=== PATIENT | male | born 1955 | race Caucasian/White ===

== ENCOUNTER 2023-07-12 05:33 | Inpatient (IN) ==
--- NOTE | 2023-07-03 11:16 | PAT Medication Instructions ---
Medication Instructions Date of Service July 03, 2023 Home Medications acetaminophen 325 mg capsule 325 mg PO QID PRN bisacodyl 10 mg rectal suppository 10 mg NM DAILY PRN folic acid 1 mg tablet 1 mg PO DAILY hydrocortisone 1 % topical cream 1 applic topical UD PRN magnesium hydroxide 400 mg/5 mL oral suspension (Milk of Magnesia) 15 ml PO DAILY PRN multivitamin-iron 9 mg-folic acid 400 mcg-calcium and minerals tablet (Thera M Plus (ferrous fumarate)) 1 tab PO DAILY omeprazole 40 mg capsule,delayed release 40 mg PO DAILY phenytoin 100 mg/4 mL oral suspension 150 mg PO BID thiamine HCl (vitamin B1) 100 mg tablet 200 mg PO DAILY Continue as directed omeprazole 40 mg capsule,delayed release 40 mg PO DAILY STOP taking 24 hours before surgery hydrocortisone 1 % topical cream 1 applic topical UD PRN DO NOT take the morning of surgery bisacodyl 10 mg rectal suppository 10 mg NM DAILY PRN folic acid 1 mg tablet 1 mg PO DAILY magnesium hydroxide 400 mg/5 mL oral suspension (Milk of Magnesia) 15 ml PO DAILY PRN multivitamin-iron 9 mg-folic acid 400 mcg-calcium and minerals tablet (Thera M Plus (ferrous fumarate)) 1 tab PO DAILY thiamine HCl (vitamin B1) 100 mg tablet 200 mg PO DAILY Take morning of surgery With a small sip of water, OTHERWISE NOTHING TO EAT OR DRINK AFTER MIDNIGHT: acetaminophen 325 mg capsule 325 mg PO QID PRN(if needed) phenytoin 100 mg/4 mL oral suspension 150 mg PO BID Take evening before surgery acetaminophen 325 mg capsule 325 mg PO QID PRN(if needed) phenytoin 100 mg/4 mL oral suspension 150 mg PO BID Other Notes If you have any questions please call us at [phone] or [phone] or [phone] or [phone]
--- NOTE | 2023-07-06 12:03 | Anesthesiology Consultation ---
Date of Service July 06, 2023 Assessment & Plan (1) Encounter for pre-operative examination: - Case discussed with Dr. Sanon including previously unconfirmed EKG (now confirmed as NSR) and he advised that patient will be acceptable to proceed with surgery as planned. - [facility] resident, 07/06/23 COVID test negative. Information above was reviewed with nurse Ofe at patient's long-term care facility over the phone. Chart Review Chart Review: Acceptable Risk for Surgery and Patient seen in Pre Admission Testing Teaching & Discussion Pre-Anesthesia Teaching/Discussion Notes: Instructed NPO after midnight before surgery, except medications with 15 cc of water. Medication instructions provided according to the PAT guidelines. History Surgery Operation Date: 07/12/23 08:00 Proposed Procedures p Percutaneous Endovascular Repair of Abdominal Aortic Aneurysm - Silverio Vargas MD Height/Weight Height: 5 ft 3 in Weight: 58 kg Allergies Allergy/AdvReac Type Severity Reaction Status Date / Time Iodinated Contrast Media Allergy Unknown Verified 06/29/23 15:21 Additional Notes: Ht and wt reported by nurse Ginna at [facility]. Nurse called 07/07/23 with updated weight. Medications Home Medications Medication Instructions Recorded Confirmed Last Taken acetaminophen 325 mg capsule 325 mg PO QID PRN fever/pain 06/29/23 06/29/23 Unknown bisacodyl 10 mg rectal suppository 10 mg SC DAILY PRN for 06/29/23 06/29/23 Unknown constipation, if no results from [facility] folic acid 1 mg tablet 1 mg PO DAILY 06/29/23 06/29/23 Unknown hydrocortisone 1 % topical cream 1 applic topical UD PRN Rash 06/29/23 06/29/23 Unknown magnesium hydroxide 400 mg/5 mL 15 ml PO DAILY PRN constipation, 06/29/23 06/29/23 Unknown oral suspension (Milk of Magnesia) no BM for 3 days multivitamin-iron 9 mg-folic acid 1 tab PO DAILY 06/29/23 06/29/23 Unknown 400 mcg-calcium and minerals tablet (Thera M Plus (ferrous fumarate)) omeprazole 40 mg capsule,delayed 40 mg PO DAILY 06/29/23 06/29/23 Unknown release phenytoin 100 mg/4 mL oral 150 mg PO BID 06/29/23 06/29/23 Unknown suspension thiamine HCl (vitamin B1) 100 mg 200 mg PO DAILY 06/29/23 06/29/23 Unknown tablet Past Medical History Medical History (Updated 07/06/23 @ 13:27 by Fiorella Eduardo PA-C) AAA (abdominal aortic aneurysm) without rupture Abd/Pelvis CT 04/11/23: Atherosclerosis with fusiform aneurysmal dilation of the infrarenal abdominal aorta measuring up to 6.6 cm Anemia Anorexia Cachexia Constipation Difficulty in walking, not elsewhere classified Dysphagia, oral phase per shelter report: mechanical soft texture, regular-thin consistency, low potassium foods; pt denies choking when eating or drinking Fracture of unspecified part of neck of left femur, subsequent 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, accompanying caregiver states that was an incidental finding GERD without esophagitis controlled, stable per pt Injury of left index finger trauma in childhood from sled riding accident Nontraumatic subdural hemorrhage, 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 Exercise / Class Metabolic Activity IV < 2 Limit ADL/Bedbound Past Surgical History Surgical History History of esophagogastroduodenoscopy (EGD) per record Hx of colonoscopy per record Surgical history unknown Past Anesthesia History No Hx of Anesthesia Complications and No Family Hx of Anesthesia Complications History of PONV No Hx of PONV and No Hx of Motion Sickness Social History Smoking Status: Never smoker Do You Dip or Chew Tobacco: No Hx Alcohol Use: No Hx Substance Use: No Review of Systems Patient denies chest pain, shortness of breath, dyspnea on exertion, snoring, witnessed apneas, fever, chills, cough, wheezing, or palpitations. Physical Exam Vital Signs Vitals BP 127.84 P 85 TEMP 98.2 SP02 95% on RA RESP 17 Physical Patient resting comfortably in chair in no acute distress, alert and oriented, responding appropriately throughout visit Full cervical extension range of motion without pain TMD 3.5 finger breadths Mallampati Score 2 Dentition: intact, denies chipped or loose teeth, caps/crowns, implants or bridges Lungs: normal respiratory effort. Good air movement, clear throughout to auscultation, no adventitious breath sounds Cardiac: regular rate and rhythm, no murmurs noted Carotid arteries: negative bruit bilat Lab Results Anesthesia Preop Results Results Anesthesia Widget: WBC 9.86 K/ul (4.8-10.8) 07/06/23 Hgb 13.1 g/dl (14.0-18.0) L 07/06/23 Hct 40.6 % (42.0-52.0) L 07/06/23 Plt 325 K/uL (130-400) 07/06/23 Na 135 mmol/L (136-145) L 07/06/23 K 4.9 mmol/L (3.5-5.1) 07/06/23 Cl 101 mmol/L (98-107) 07/06/23 CO2 28 mmol/L (21-32) 07/06/23 BUN 33 mg/dl (6-23) H 07/06/23 Creat 0.93 mg/dl (0.6-1.4) 07/06/23 Glucose Level 93 mg/dl (70-99(Fasting)) 07/06/23 PT 11.2 Seconds (9.0-12.0) 07/06/23 PTT 31.2 Seconds (21.0-31.0) H 07/06/23 INR 1.0 (0.9-1.1) 07/06/23 COVID-19 PCR NEGATIVE (Negative) 07/06/23 Blood Type A Negative 07/06/23 Antibody Screen NEGATIVE 07/06/23 Testing Electrocardiogram Date: 07/06/23 NSR, rate 81 bpm Chest X-Ray Date: 07/06/23 No acute chest disease Elevation of left hemidiaphragm Echocardiogram Date: 05/15/23 EF 50-55% Normal wall motion, no regional wall motion abnormalities Mildly calcified mitral valve, mildly thickened leaflets. Mild mitral regurgitation Mild tricuspid regurgitation Grade I diastolic dysfunction Other Testing Abdomen pelvis CTA 04/11/23 1. Atherosclerosis with fusiform aneurysmal dilation of the infrarenal abdominal aorta measuring up to 6.6 cm. No aneurysm rupture or dissection. 2. 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 3. Chronic and displaced left femoral neck fracture with chronic remodeling/resorptive changes. Orthopedic consultation is recommended. There is resultant left-sided muscle atrophy. 4. Constipation with stercoral proctitis. 5. Age-indeterminate thoracolumbar compression deformities, likely subacute to chronic. 6. Additional findings as above.
--- NOTE | 2023-07-11 10:59 | History & Physical Report ---
Date of Service July 11, 2023 History of Present Illness Primary Care Provider: Harmony Wise, Reason for Consultation AAA History of Present Illness I had the pleasure of seeing Kyrie today for evaluation of his abdominal aortic aneurysm. As you know he is a 67-year-old gentleman who was found to have abdominal aortic aneurysm. He had a CAT scan done in 2021 which showed the aneurysm to be 6.1 cm in size. He had an ultrasound done recently which shows 6.[address] angiogram was arranged prior to this visit to better define the aneurysm. 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 He does not have any complaints. Review of Systems Review of systems unobtainable. Physical Exam Vitals & Measurements HR: 77 (Monitored) BP: 142/84 SpO2: 95% Input and Output - Last 24 hours (Last 8 hours) No I/O Data Found: Physical exam he is awake alert he appears to be no in no apparent distress. His blood pressure is 142/84 in the right 146/80 on the left. Lungs are clear heart had a regular rhythm exam is benign. There is a small incision right upper quadrant which I believe is a SERVER ADMINISTRATOR shunt. There is another incision in the left side of his abdomen transversely. His abdomen is soft. He does have a pulsatile mass in the mid epigastrium. Femorals are +2 bilaterally. Heels are +1 bilaterally with normal capillary refill. Diagnostic Results CT angiogram showed a 6.1 cm abdominal aortic aneurysm. It is amenable to an endovascular repair. It also showed a chronic left femoral head hip fracture and displacement. Assessment/Plan AAA (abdominal aortic aneurysm) I discussed the abdominal gives him with his son who is the power of transactional attorney. He is elected to go ahead and have this repaired. We will obtain an echocardiogram prior to surgery. This is going to be ordered by the facilities physician. Hip fracture, left The physician at the facility Dr. Wise was also made aware of the hip fracture. This will be evaluated by the facility again prior to surgery. If the echo is satisfactory with no significant findings we will go ahead and plan is percutaneous endovascular aortic repair for the beginning of May. Thank you very much for letting us participate in the care of this patient. Sincerely, Tha Vargas MD Problem List/Past Medical History Ongoing AAA (abdominal aortic aneurysm) Hip fracture, left Medications Home folic acid(folic acid 1 mg oral tablet), 1 mg= 1 tab, PO, Daily multivitamin with minerals(Thera M oral tablet), 1 tab, PO, Daily omeprazole(omeprazole 40 mg oral delayed release capsule), 40 mg= 1 cap, PO, Daily phenytoin(phenytoin 100 mg oral capsule, extended release) thiamine(Vitamin B1 100 mg oral tablet) Allergies IVP dye allergy Allergies Allergy/AdvReac Type Severity Reaction Status Date / Time Iodinated Contrast Media Allergy Unknown Verified 06/29/23 15:21 Home Medications Medication Instructions Recorded Confirmed Type acetaminophen 325 mg capsule 325 mg PO QID PRN fever/pain 06/29/23 06/29/23 History bisacodyl 10 mg rectal suppository 10 mg NM DAILY PRN for 06/29/23 06/29/23 History constipation, if no results from [facility] folic acid 1 mg tablet 1 mg PO DAILY 06/29/23 06/29/23 History hydrocortisone 1 % topical cream 1 applic topical UD PRN Rash 06/29/23 06/29/23 History magnesium hydroxide 400 mg/5 mL 15 ml PO DAILY PRN constipation, 06/29/23 06/29/23 History oral suspension (Milk of Magnesia) no BM for 3 days multivitamin-iron 9 mg-folic acid 1 tab PO DAILY 06/29/23 06/29/23 History 400 mcg-calcium and minerals tablet (Thera M Plus (ferrous fumarate)) omeprazole 40 mg capsule,delayed 40 mg PO DAILY 06/29/23 06/29/23 History release phenytoin 100 mg/4 mL oral 150 mg PO BID 06/29/23 06/29/23 History suspension thiamine HCl (vitamin B1) 100 mg 200 mg PO DAILY 06/29/23 06/29/23 History tablet Past Med/Surg History Medical History (Updated 07/06/23 @ 13:27 by Fiorella Eduardo PA-C) AAA (abdominal aortic aneurysm) without rupture Abd/Pelvis CT 04/11/23: Atherosclerosis with fusiform aneurysmal dilation of the infrarenal abdominal aorta measuring up to 6.6 cm Anemia Anorexia Cachexia Constipation Difficulty in walking, not elsewhere classified Dysphagia, oral phase per [facility] report: mechanical soft texture, regular-thin consistency, low potassium foods; pt denies choking when eating or drinking Fracture of unspecified part of neck of left femur, subsequent 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, accompanying caregiver states that was an incidental finding GERD without esophagitis controlled, stable per pt Injury of left index finger trauma in childhood from sled riding accident Nontraumatic subdural hemorrhage, 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, no additional details available POLST (Physician Orders for Life-Sustaining Treatment) per med record- DNI/DNR Rash and other nonspecific skin eruption pt denies current/active rash, confirmed by nurse with facility Rhabdomyolysis No further details provided by PAT RN phone assessment Seizures last seizure > 1 year Surgical History History of esophagogastroduodenoscopy (EGD) per record Hx of colonoscopy per record Surgical history unknown Social History Smoking Status: Never smoker Do You Dip or Chew Tobacco: No; Hx Alcohol Use: No Hx Substance Use: No Preferred Language: Unknown Communication Ability: unknown String Cutter Required: No Current Living Situation: Skilled Nursing Assistive Devices: Wheelchair Assistive Devices Comment: cordelia wheelchair-per medical record
[2023-07-12] MEDS ORDERED: ceFAZolin 2000MG 2,000 MG/15 ML SYR IV SCH (06:00)
[2023-07-12] MEDS ORDERED: HYDROCORTISONE SOD SUCCINATE 100 MG/2 ML VIAL IV SCH (06:00)
[2023-07-12] MEDS ORDERED: LACTATED RINGER'S 1,000 ML IV SCH (06:00)
[2023-07-12] MEDS ORDERED: BUPIVACAINE/EPINEPHRINE 0.5% MPF 1:200,000 30 ML VIAL ONE (07:04)
[2023-07-12] MEDS ORDERED: LIDOCAINE 1% LOCAL 20 ML VIAL ONE (07:04)
[2023-07-12] MEDS ORDERED: THROMBIN FOR SOLN 20000 UNIT KIT ONE (07:05)
[2023-07-12] MEDS ORDERED: GELATIN SPONGE SZ 100 ONE (07:05)
[2023-07-12] MEDS ORDERED: fentaNYL citrate PF 100 MCG/2 ML VIAL ONE (07:09)
[2023-07-12] MEDS ORDERED: DEXAMETHASONE SOD INJ 4 MG/ML VIAL ONE (07:09)
[2023-07-12] MEDS ORDERED: LIDOCAINE 2% 2 ML VIAL/AMP(20MG/ML) INFIL ONE ×2 (07:09→07:10)
[2023-07-12] MEDS ORDERED: ONDANSETRON INJ 2 MG/ML 2 ML VIAL ONE (07:09)
[2023-07-12] MEDS ORDERED: MIDAZOLAM HCL 1 MG/ML 2ML VIAL ONE (07:09)
[2023-07-12] MEDS ORDERED: PROPOFOL IV EMULSION 10 MG/ML 20 ML VIAL IV ONE ×2 (07:09→08:42)
[2023-07-12] MEDS ORDERED: PHENYLEPHRINE HCL 10 MG/ML VIAL ONE (07:15)
[2023-07-12] MEDS ORDERED: ROCURONIUM BROMIDE 10 MG/ML 5 ML VIAL IV ONE ×4 (07:15→08:43)
[2023-07-12] MEDS ORDERED: HEPARIN SOD (PORCINE) 1000 UNIT/ML ONE ×2 (07:28→07:31)
[2023-07-12] MEDS ORDERED: PROTAMINE SULFATE 10 MG/ML 5 ML VIAL IV ONE ×2 (07:34→09:19)
[2023-07-12] MEDS ORDERED: FAMOTIDINE/PF 20 MG/2 ML VIAL IV ONE (07:34)
--- NOTE | 2023-07-12 07:46 | History & Physical Bridge Note ---
Date of Service July 12, 2023 History & Physical Bridge Note I have examined the patient, reviewed the History & Physical and in the interval since the performance of the History & Physical I have noted the following changes of clinical significance: no changes noted
--- NOTE | 2023-07-12 08:28 | Consultation ---
Date of Consultation July 12, 2023 History of Present Illness Reason for Consultation: Ischemic right lower extremity Attending Physician: Silverio Vargas MD History of Present Illness Subjective I the pleasure of seeing Swati today for evaluation of her right leg. As you know she is a 65-year-old female who has had an endarterectomy of the right common femoral artery 3 years ago. Subsequently she had stenting of the right common femoral artery. She was recently in the hospital for around a bleeding polyp in her rectum and was discharged. She most recently was in the hospital of her hematuria which has resolved. She was discharged yesterday complaining of discomfort in her right leg when walking. She called today claiming that he she has rest pain in the right lower extremity and a pale foot. She denies any loss of feeling or motion in the foot. Review of Systems 10 systems were reviewed. Other than the HPI her history is positive for stomach and colon cancer. And malignancy of her uterus. Objective Vitals & Measurements HR: 80 (Monitored) BP: 142/70 SpO2: 98% Physical Exam On exam she is awake alert and oriented x3. She is in no apparent distress. Her blood pressure 152/70. Radials present +2 bilaterally. Lungs are clear. Heart has a RRR. Abdominal exam is benign. She does have an external iliac artery pulse above the inguinal ligament on the right side. Femorals are +2 on the left nonpalpable on the right. Right lower extremity has no pulses in this entirety. The right foot is pale. He does have motion in the right foot and there is no decrease sensation at this point. 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 Assessment/Plan 1. Atherosclerosis At this point we recommended admission to the hospital with anticoagulation and surgical repair of her common femoral artery tomorrow. She understands the risks options and benefits and agrees to care with this procedure. Signature Line Electronic Signature on File Electronically Reviewed/Signed by: Silverio Vargas MD Author Signature Dt/Tm:07/11/2023 04:22 PM Small Business Consultant Fred Ashraf [facility]-[address], [address] [place] [address] EJS Result Type: Physician Consult Date of Service: July 11, 2023 16:17 EDT Authorization Status: Final Subject: Follow Up Visit Author or Import Date: MD Vargas Eugene J on July 11, 2023 16:22 EDT Verified By: MD Vargas Eugene J on July 11, 2023 16:22 EDT Encounter info: [id number], [facility], Clinic, 07/11/2023 - Allergies Allergy/AdvReac Type Severity Reaction Status Date / Time Iodinated Contrast Media Allergy Unknown Verified 07/12/23 06:07 Home Medications Medication Instructions Recorded Confirmed Type acetaminophen 325 mg capsule 325 mg PO QID PRN fever/pain 06/29/23 07/12/23 History bisacodyl 10 mg rectal suppository 10 mg [place] DAILY PRN for 06/29/23 07/12/23 History constipation, if no results from [facility] folic acid 1 mg tablet 1 mg PO DAILY 06/29/23 07/12/23 History hydrocortisone 1 % topical cream 1 applic topical UD PRN Rash 06/29/23 07/12/23 History magnesium hydroxide 400 mg/5 mL 15 ml PO DAILY PRN constipation, 06/29/23 07/12/23 History oral suspension (Milk of Magnesia) no BM for 3 days multivitamin-iron 9 mg-folic acid 1 tab PO DAILY 06/29/23 07/12/23 History 400 mcg-calcium and minerals tablet (Thera M Plus (ferrous fumarate)) omeprazole 40 mg capsule,delayed 40 mg PO DAILY 06/29/23 07/12/23 History release phenytoin 100 mg/4 mL oral 150 mg PO BID 06/29/23 07/12/23 History suspension thiamine HCl (vitamin B1) 100 mg 200 mg PO DAILY 06/29/23 07/12/23 History tablet Patient History Medical History (Updated 07/06/23 @ 13:27 by Fiorella Eduardo PA-C) AAA (abdominal aortic aneurysm) without rupture Abd/Pelvis CT 04/11/23: Atherosclerosis with fusiform aneurysmal dilation of the infrarenal abdominal aorta measuring up to 6.6 cm Anemia Anorexia Cachexia Constipation Difficulty in walking, not elsewhere classified Dysphagia, oral phase per [facility] report: mechanical soft texture, regular-thin consistency, low potassium foods; pt denies choking when eating or drinking Fracture of unspecified part of neck of left femur, subsequent 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, accompanying caregiver states that was an incidental finding GERD without esophagitis controlled, stable per pt Injury of left index finger trauma in childhood from sled riding accident Nontraumatic subdural hemorrhage, 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, no additional details available POLST (Physician Orders for Life-Sustaining Treatment) per med record- DNI/DNR Rash and other nonspecific skin eruption pt denies current/active rash, confirmed by nurse with facility Rhabdomyolysis No further details provided by PAT RN phone assessment Seizures last seizure > 1 year Surgical History History of esophagogastroduodenoscopy (EGD) per record Hx of colonoscopy per record Surgical history unknown Social History Smoking Status: Never smoker Do You Dip or Chew Tobacco: No; Hx Alcohol Use: No Hx Substance Use: No Preferred Language: Unknown Communication Ability: unknown Pattern Fitter Required: No Current Living Situation: [facility] Assistive Devices: Wheelchair Assistive Devices Comment: broda wheelchair-per medical record Results & Data Vital Signs (Past 12 Hours) Vital Signs Temp Pulse Resp BP BP Pulse Ox O2 Del Method 07/12/23 06:07 36.7 C 90 20 154/98 H 150/84 H 93 Room Air
[2023-07-12] MEDS ORDERED: SUGAMMADEX SODIUM 200 MG/2 ML VIAL IV ONE (09:19)
[2023-07-12] MEDS ORDERED: ceFAZolin 330 MG/ML 1 GM VIAL ONE (09:45)
[2023-07-12] MEDS ORDERED: ALBUMIN HUMAN 5% 12.5 GM/250 ML VIAL IV ONE (10:02)
[2023-07-12] MEDS ORDERED: MoRPHine SULFATE 2 MG/ML CARP ONE (10:09)
[2023-07-12] MEDS ORDERED: SURGICEL ABSORB HEMOSTAT 2IN X 14IN TOP ONE (10:15)
[2023-07-12] MEDS ORDERED: PROMETHAZINE HCL 12.5 MG in SODIUM CHLORIDE 0.9% 50 ML IV PRN (10:17)
[2023-07-12] MEDS ORDERED: LABETALOL HCL IV 5 MG/ML 20ML IV PRN (10:17)
[2023-07-12] MEDS ORDERED: FLUMAZENIL 0.1 MG/1 ML 10 ML VIAL IV PRN (10:17)
[2023-07-12] MEDS ORDERED: ePHEDrine sulfate 50 MG/ML AMP IV PRN (10:17)
[2023-07-12] MEDS ORDERED: fentaNYL citrate PF 100 MCG/2 ML VIAL IV PRN (10:17)
[2023-07-12] MEDS ORDERED: ONDANSETRON INJ 2 MG/ML 2 ML VIAL IV PRN ×2 (10:17→11:53)
[2023-07-12] MEDS ORDERED: NALOXONE HCL 0.4 MG/1 ML VIAL/CARP IV PRN (10:17)
[2023-07-12] MEDS ORDERED: ATROPINE SULFATE 0.1 MG/ML 10ML SYR IV PRN (10:17)
[2023-07-12] MEDS ORDERED: VISIPAQUE IV ONE (10:17)
--- NOTE | 2023-07-12 10:22 | Procedure Note ---
Angiogram Post Procedure Fluoroscopy Time (minutes): 7.1 Radiation (mGy): 165 Contrast: 80 Post Operative Report Pre & Post Diagnosis Operation Date: 07/12/23 08:00 Pre-Op Diagnosis: Abominal Aortic Aneurysm Post-Op Diagnosis: Abominal Aortic Aneurysm I identified the patient and participated in the time-out.: Yes Procedure Operation Date: 07/12/23 08:00 Actual Procedures p Percutaneous Endovascular Repair of Abdominal Aortic Aneurysm, Repair of Right Femoral Artery, Mechanical Enclosure of Left Femoral Artery - Silverio Vargas MD Surgeon Silverio Vargas MD Desk Interviewer Suzy,PAC Estimated Blood Loss 150 Findings Consistent with Post-Op Diagnosis Specimens none Anesthesia Type General Complications none Disposition Accompanied Patient To Recovery: No Disposition: Recovery Room Indications This is a 67-year-old gentleman with large abdominal aortic aneurysm. Repair was recommended using a PEVAR technique. I have discussed the risks options and benefits of the procedure with the patient. The patient understands the risks options and benefits and agrees to the procedure. Description of Procedure The patient was brought to the OR and placed in supine position. Patient was intubated and general anesthesia was accomplished. Abdomen and groins were prepped and draped in sterile fashion. A safety timeout was performed to identify patient's name, date of and the correct procedure. Ultrasound was then used to image the common femoral arteries. Both femoral arteries were patent with mild plaque. Ultrasound guided percutaneous access of the right groin was performed. The right common femoral artery was patent. A percutane ous puncture was made in the right common femoral artery using ultrasound. The depth finder for the Manta device was used to measure the depth of the puncture. It was found to be 4 cm. The depth finder was removed and the 8 [place] sheath inserted. We turned our attention to the left side and we similarly accessed the left common femoral artery. The left common femoral artery was patent. Using ultrasound left common femoral artery was punctured. The depth finder was used to measure the depth of the puncture of the left side and also found to be 4 cm from the skin edge. This was removed and 8 [place]au[place] sheath was inserted. Patient was heparinized with 7000 of IV heparin. Through the right groin, we advanced a soft Glidewire followed by a Kumpe catheter. The wire then was exchanged for a stiff Carli wire. We then cannulated the aorta from the left side using 035 Glidewire and a Kumpe catheter. Once this was placed in the super renal aorta the wire was exchanged to a Carli wire.. We then upsized our access on the right side with a 14 [place]auan dilator and subsequently to 16 Palauan dry seal sheath. The left groin sheath was then exchanged to a 12 [place]au[place] dry seal sheath. The sheaths were advanced all the way up in the aortic sac. A marker pig was inserted to the left groin. Aortography was performed. The level of the renal arteries were marked on the screen. This showed patency of both renal arteries and a acceptable neck for deployment of the graft. We advanced the device ([place] excluder conformable 26 mm x 14.5 mm x 12 cm) through the right sheath. The shaft of the graft was then deployed. An aortogram was performed. Both renal arteries were visualized just above the top of the deployed graft. Aortogram confirmed good location of the proximal end of the graft. The hooks were then deployed. Cannulation of the gate was then accomplished using an 035 glidewire and a Kumpke catheter. The Kumpe spun easily in the neck of the graft. The 035 Glidewire was removed and a Carli wire was reinserted. A marker pigtail was then inserted over the Nogueira wire. The 12 Palauan sheath was then pulled down into the external iliac and an arteriogram was performed of the left iliac system. This identified the origin of the hypogastric and the left side. We then removed the pigtail. We reinserted a 12 [place]auan sheath dilator and advanced the sheath into the gate of the graft. Prior to inserting the contralateral limb we deployed the ipsilateral limb to complete the deployment of the graft. The device was then removed from the right groin. We then inserted an 16mm x 12 mm x 12 contralateral limb. The 12 [place]au[place] sheath was then pulled down to below the level of the contralateral limb. Contralateral limb was then deployed without difficulty. The 16 [place]auan sheath on the right side was then pulled down into the pelvis. Hand-injection was then performed to yasmin where the bifurcation of the common iliac artery was. We then chose a 16 x 12 x 10 contralateral limb to extend the right side limb. The graft was advanced to the 16 Palauan sheath. It was deployed with the distal end falling just above the iliac bifurcation. The Q50 balloon was then inserted through the left sheath. The proximal attachment site, the gate and the distal attachment site were ballooned with the Q50 balloon. The balloon was then removed. Was inserted through the right side 16 Palauan sheath and then dilated the overlap of the limbs and the distal attachment site of the right limb. The balloon was then removed. The pigtail was then inserted through the left side to above the renal arteries. A final arteriogram was then performed which showed no evidence of a type I endoleak. Graft showed no evidence of narrowing throughout. An 035 Glidewire was then reinserted into the pigtail and the pigtail removed. The 12 Palauan sheath was then pulled and a 14 Palauan Manta device was inserted. This was deployed without difficulty. No bleeding was noted after deployment. The right groin sheath was then also pulled. An 18 [place] Manta device was inserted and deployed. The Manta device felt like it hung up. Once it was deployed there was still bleeding noted from the puncture site. Pressure was applied for 5 minutes with no decrease in bleeding. We then decided to open the groin. A longitudinal incision was then made in the right groin. This was carried down to where the common femoral artery was identified. Manual pressure was applied over the puncture site. The Manta device had fired above the artery without catching in the artery. The femoral artery was controlled proximally distally with DeBakey clamps. The puncture site was a clean puncture. It was closed with interrupted 6-0 Prolene's. Once this was completed the clamps removed. And hemostasis was noted of the puncture site. Excellent pulse was felt distally beyond the puncture site repair. Wound was then inspected. Adequate hemostasis was noted of the wound. Wound was irrigated with antibiotic solution. It was then closed in usual fashion using a running 2-0 Vicryl suture for the femoral sheath and a running 3-0 Vicryl suture for the subcutaneous layer. [place] were used for the skin and a Prevena dressing over the wound. The patient left the operation room in satisfactory condition and tolerated the procedure well. All needle and sponge counts were correct at the end of the procedure. Nessa Mccarthy Pac assisted due to lack of resident availability and was necessary for positioning, draping, retraction, wound closure deep layers, subcutaneous tissue, and skin closure and was necessary for assisting with the case. I attest to the content of the Intraoperative Record and any orders documented therein. Any exceptions are noted below.
[2023-07-12 10:56] LABS: Hematocrit (blood only) 27.2 % (42.0-52.0)
[2023-07-12 11:13] LABS: Magnesium 1.7 mg/dl (1.7-2.4)
--- NOTE | 2023-07-12 11:36 | Anesthesiology Progress Note ---
Date of Service July 12, 2023 Anesthesia Post Procedure Vital Signs Vital Signs: Temp Pulse Pulse Resp BP BP BP 07/12/23 11:20 85 17 129/57 L 07/12/23 11:10 82 15 121/52 L 07/12/23 11:00 36.3 C L 80 15 105/49 L 07/12/23 10:50 79 16 106/49 L 07/12/23 10:40 81 20 109/51 L 07/12/23 10:33 36.1 C L 82 16 94/56 L 07/12/23 06:07 36.7 C 90 20 154/98 H 150/84 H Pulse Ox O2 Del Method O2 Flow Rate 07/12/23 11:20 99 Nasal Cannula 3 07/12/23 11:10 97 Nasal Cannula 3 07/12/23 11:00 96 Nasal Cannula 3 07/12/23 10:50 99 Oxymask 8 07/12/23 10:40 100 Oxymask 8 07/12/23 10:33 100 Oxymask 8 07/12/23 06:07 93 Room Air Transfer of Care Handoff Completed per policy Notes Mental Status: alert / awake / arousable Patient Amnestic to Procedure: Yes Nausea / Vomiting: adequately controlled Pain: adequately controlled Airway Patency, RR, SpO2: stable & adequate BP & HR: stable & adequate Hydration State: stable & adequate Anesthetic Complications: no major complications apparent
[2023-07-12] MEDS ORDERED: oxyCODONE/ACETAMINOPHEN 5mg/325mg TAB PO PRN (11:53)
[2023-07-12] MEDS ORDERED: D5W AND 1/2NSS 1,000 ML IV SCH (11:53)
[2023-07-12] MEDS ORDERED: bisacodyL 10 MG SUPP PR PRN (11:53)
[2023-07-12] MEDS ORDERED: MAGNESIUM HYDROXIDE SUSP 30 ML UDC PO PRN (11:53)
[2023-07-12] MEDS ORDERED: PHENYLEPHRINE/NSS 25 MG/250 ML BAG IV PRN (11:53)
[2023-07-12] MEDS ORDERED: ACETAMINOPHEN 325 MG TAB PO PRN (12:23)
[2023-07-12] MEDS ORDERED: HYDROCORTISONE 1% CRM 30 GM TUBE EXT PRN (12:24)
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
[2023-07-12] MEDS: ceFAZolin 2000MG 2,000 MG/15 ML SYR IV SCH (16:47)
[2023-07-12] MEDS: PHENYTOIN SUSP 125 MG/5 ML PO SCH (19:46)
[2023-07-13] MEDS: ceFAZolin 2000MG 2,000 MG/15 ML SYR IV SCH (00:15)
[2023-07-13 04:30] LABS: Basophils # (auto) 0.04 K/uL (0.00-0.20); Basophils % (auto) 0.3 %; Hematocrit (blood only) 23.3 % (42.0-52.0); Hemoglobin 7.6 g/dl (14.0-18.0); Immature Granulocytes # (auto) 0.09 K/uL (0.01-0.20); Immature Granulocytes % (auto) 0.7 %; Lymphocytes # (auto) 2.14 K/uL (1.20-3.40); Lymphocytes % (auto) 15.7 %; Mean Corpuscular Hemoglobin 30.3 pg (25.0-34.0); Mean Corpuscular Hgb Conc 32.6 g/dL (32.0-36.0); Mean Corpuscular Volume 92.8 fL (80.0-100.0); Mean Platelet Volume 8.9 fL (9.4-12.4); Monocytes % (auto) 10.2 %; Neutrophils % (auto) 73.1 %; Platelet Count 193 K/uL (130-400); RDW Coefficient of Variation 12.5 % (11.5-14.5); RDW Standard Deviation 42.2 fL (36.4-46.3); Red Blood Count 2.51 M/uL (4.70-6.10); White Blood Count 13.67 K/ul (4.8-10.8)
[2023-07-13 04:43] LABS: BUN Creatinine Ratio 28.7 (10-20); Calcium 8.4 mg/dl (8.6-10.3); Creatinine Clr Calc Pharmacy 45.3 ml/min; Est GFR (African American) 66.5 ml/min; Est GFR (Non-African American) 57.4 ml/min; Potassium 4.3 mmol/L (3.5-5.1)
[2023-07-13 05:20] LABS: RBC Morphology Unremarkable
--- NOTE | 2023-07-13 07:54 | Critical Care Progress Note ---
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 He is postop day 1 and doing well. He did experience some delirium and agitation last evening. Recommendations: 1. Postop EVAR day 1: Management per vascular surgery. He appears neurovascularly intact. Wound VAC was inadvertently removed by the patient. Site is dressed. 2. Anemia: Patient's hemoglobin hematocrit has dropped fairly significantly. Do not see signs of obvious bleeding. We will discuss with vascular surgery whether additional intervention is required. 3. Delirium: Suspect related to ICU delirium. Suspect patient will be better and he is back in his regular environment. Try and keep him reorientated as much as possible and maintain sleep-wake cycles. Would avoid benzodiazepines or other medications potentially contributing to delirium including narcotics. Patient's critical care issues appear resolved. Disposition per vascular surgery. Critical care services will sign off. Feel free to contact us with questions or concerns Admission and Anticipated Discharge Date Admission Date: July 12, 2023 Subjective Patient seen and examined. EMR reviewed. Discussed with overnight critical care AWA and with bedside critical care nurse and on multidisciplinary rounds. Patient experienced some delirium last evening. He was inadvertently pulling IVs out. He discontinued his wound VAC. He was placed in mitts to avoid removing additional IVs. This morning he is awake alert and conversant. He denies any pain. No nausea or vomiting. No difficulties breathing. He is on room air. He denies any numbness and tingling in his legs. Review of Systems Review of Systems: All systems reviewed & are unremarkable except as noted in Subjective Physical Exam Constitutional: WD/WN, vitals as above Neck: trachea midline, no thyromegaly Respiratory: normal respiratory effort, lungs clear to auscultation Cardiovascular: RRR, no murmur, no edema Gastrointestinal (Abdomen): normal bowel sounds, soft, nontender, no hepatosplenomegaly Musculoskeletal: Extremities: extremities normal to inspection Skin: no rashes, warm and dry Neurologic: Nonfocal exam Lymphatic: no cervical lymphadenopathy Results & Data Results & Data Vital Signs (Past 12 Hours) Vital Signs Temp Pulse Pulse Resp BP BP Pulse Ox 07/13/23 06:00 104 H 20 82 L 07/13/23 06:00 126/72 07/13/23 05:03 130/74 07/13/23 05:03 104 H 17 86 L 07/13/23 05:00 109 H 30 H 93 07/13/23 04:01 107 H 20 96 07/13/23 04:01 93/70 L 07/13/23 04:00 111 H 18 89 L 07/13/23 03:00 92 H 21 07/13/23 03:00 130/70 07/13/23 02:06 97 H 24 98 07/13/23 01:00 97 H 17 100 07/13/23 01:00 146/100 H 07/13/23 04:00 36.8 C 07/13/23 01:38 07/13/23 00:00 36.9 C 07/13/23 00:00 108 H 07/13/23 00:00 94 H 21 07/13/23 00:00 108/61 07/12/23 23:40 134/87 07/12/23 23:40 102 H 19 96 07/12/23 23:00 113 H 20 07/12/23 22:00 109 H 22 99/51 L 99 07/12/23 21:07 99 H 20 07/12/23 21:01 158/111 H 07/12/23 20:40 97 H 25 H 07/12/23 20:01 96/71 L 07/12/23 20:01 102 H 25 H 07/12/23 20:00 95 H 22 07/12/23 21:00 36.9 C O2 Del Method O2 Flow Rate 07/13/23 06:00 07/13/23 06:00 07/13/23 05:03 07/13/23 05:03 07/13/23 05:00 07/13/23 04:01 07/13/23 04:01 07/13/23 04:00 07/13/23 03:00 07/13/23 03:00 07/13/23 02:06 07/13/23 01:00 07/13/23 01:00 07/13/23 04:00 07/13/23 01:38 Nasal Cannula 2 07/13/23 00:00 07/13/23 00:00 07/13/23 00:00 07/13/23 00:00 07/12/23 23:40 07/12/23 23:40 07/12/23 23:00 07/12/23 22:00 Room Air 07/12/23 21:07 07/12/23 21:01 07/12/23 20:40 07/12/23 20:01 07/12/23 20:01 07/12/23 20:00 07/12/23 21:00 Critical Care Results & Data Vital Signs (Past 12 Hours) Vital Signs Temp Pulse Pulse Resp BP BP Pulse Ox 07/13/23 06:00 104 H 20 82 L 07/13/23 06:00 126/72 07/13/23 05:03 130/74 07/13/23 05:03 104 H 17 86 L 07/13/23 05:00 109 H 30 H 93 07/13/23 04:01 107 H 20 96 07/13/23 04:01 93/70 L 07/13/23 04:00 111 H 18 89 L 07/13/23 03:00 92 H 21 07/13/23 03:00 130/70 07/13/23 02:06 97 H 24 98 07/13/23 01:00 97 H 17 100 07/13/23 01:00 146/100 H 07/13/23 04:00 36.8 C 07/13/23 01:38 07/13/23 00:00 36.9 C 07/13/23 00:00 108 H 07/13/23 00:00 94 H 21 07/13/23 00:00 108/61 07/12/23 23:40 134/87 07/12/23 23:40 102 H 19 96 07/12/23 23:00 113 H 20 07/12/23 22:00 109 H 22 99/51 L 99 07/12/23 21:07 99 H 20 07/12/23 21:01 158/111 H 07/12/23 20:40 97 H 25 H 07/12/23 20:01 96/71 L 07/12/23 20:01 102 H 25 H 07/12/23 20:00 95 H 22 07/12/23 21:00 36.9 C O2 Del Method O2 Flow Rate 07/13/23 06:00 07/13/23 06:00 07/13/23 05:03 07/13/23 05:03 07/13/23 05:00 07/13/23 04:01 07/13/23 04:01 07/13/23 04:00 07/13/23 03:00 07/13/23 03:00 07/13/23 02:06 07/13/23 01:00 07/13/23 01:00 07/13/23 04:00 07/13/23 01:38 Nasal Cannula 2 07/13/23 00:00 07/13/23 00:00 07/13/23 00:00 07/13/23 00:00 07/12/23 23:40 07/12/23 23:40 07/12/23 23:00 07/12/23 22:00 Room Air 07/12/23 21:07 07/12/23 21:01 07/12/23 20:40 07/12/23 20:01 07/12/23 20:01 07/12/23 20:00 07/12/23 21:00 Lab & Micro Results (Past 24 Hours) RBC 2.51 M/uL (4.70-6.10) L 07/13/23 WBC 13.67 K/ul (4.8-10.8) H 07/13/23 Hgb 7.6 g/dl (14.0-18.0) L 07/13/23 Hct 23.3 % (42.0-52.0) L 07/13/23 MCV 92.8 fL (80.0-100.0) 07/13/23 MCH 30.3 pg (25.0-34.0) 07/13/23 MCHC 32.6 g/dL (32.0-36.0) 07/13/23 RDW Standard Deviation 42.2 fL (36.4-46.3) 07/13/23 RDW Coefficient of Variation 12.5 % (11.5-14.5) 07/13/23 Plt Count 193 K/uL (130-400) 07/13/23 MPV 8.9 fL (9.4-12.4) L 07/13/23 Neutrophils (%) (Auto) 73.1 % 07/13/23 Lymphocytes (%) (Auto) 15.7 % 07/13/23 Monocytes # (Auto) 1.40 K/uL (0.11-0.59) H 07/13/23 Eosinophils # (Auto) 0.00 K/uL (0.00-0.50) 07/13/23 Immature Granulocyte % (Auto) 0.7 % 07/13/23 Neutrophils # (Auto) 10.00 K/uL (1.40-6.50) H 07/13/23 Lymphocytes # (Auto) 2.14 K/uL (1.20-3.40) 07/13/23 Monocytes # (Auto) 1.40 K/uL (0.11-0.59) H 07/13/23 Eosinophils # (Auto) 0.00 K/uL (0.00-0.50) 07/13/23 Basophils # (Auto) 0.04 K/uL (0.00-0.20) 07/13/23 Immature Granulocyte # (Auto) 0.09 K/uL (0.01-0.20) 3 Red Blood Cell Morphology Unremarkable 07/13/23 Na 137 mmol/L (136-145) 07/13/23 K 4.3 mmol/L (3.5-5.1) 07/13/23 Cl 103 mmol/L (98-107) 07/13/23 CO2 28 mmol/L (21-32) 07/13/23 Anion Gap 6 (3-11) 07/13/23 BUN 37 mg/dl (6-23) H 07/13/23 Creatinine 1.29 mg/dl (0.6-1.4) 07/13/23 Estimated GFR ( Amer) 66.5 ml/min 07/13/23 Estimated GFR (Non-Af Amer) 57.4 ml/min 07/13/23 BUN/Creatinine Ratio 28.7 (10-20) H 07/13/23 Glu 105 mg/dl (70-99(Fasting)) H 07/13/23 Ca 8.4 mg/dl (8.6-10.3) L 07/13/23 Mg 1.7 mg/dl (1.7-2.4) 07/12/23 10:34 Calcium Level 8.4 mg/dl (8.6-10.3) L 07/13/23 03:49 I & O Totals 24 Hours 07/12/23 07/13/23 07/14/23 06:59 06:59 06:59 Intake Total 2697.917 / 2697.917 Output Total 1200 / 1200 Balance 1497.917 / 1497.917 Cumulative 06/20/23 15:55 thru 07/13/23 06:05 Intake Total 2697.917 Output Total 1200 Balance 1497.917 RT Ventilator Mngmt (Last Documented) Ventilator Ordered Settings Respiratory Rate 20 07/13/23 06:00 Ventilator - PT Measurements Respiratory Rate 20 Coding Level of Care Code 95521 SUB INP/OBS CARE 2/35MIN Diagnoses Status post endovascular aneurysm repair (EVAR) Z98.890; Z86.79 Delirium R41.0
[2023-07-13] MEDS: PANTOprazole 40 MG TAB PO SCH (08:09)
[2023-07-13] MEDS: THIAMINE HCL 100 MG TAB PO SCH (08:09)
[2023-07-13] MEDS: PHENYTOIN SUSP 125 MG/5 ML PO SCH ×2 (08:09→20:58)
[2023-07-13] MEDS: FOLIC ACID 1 MG TAB PO SCH (08:10)
[2023-07-13] MEDS: MULTIVITAMIN TAB PO SCH (08:10)
[2023-07-13] MEDS ORDERED: SODIUM CHLORIDE 0.9% 250 ML IV PRN (11:06)
--- NOTE | 2023-07-13 15:05 | Surgery Progress Note ---
Date of Service July 13, 2023 Assessment & Plan (1) Status post endovascular aneurysm repair (EVAR): Plan: Pt doing well overall. Transfused 1 U PRBC. Discussed wtih Dr Vargas, will transfer to PCU and monitor. H&H in AM. (2) Acute postoperative anemia due to expected blood loss: Plan: See above. Admission and Anticipated Discharge Date Admission Date: July 12, 2023 Subjective 67 yo m POD #1 after PEVAR and R groin femoral artery repair, seen in f/u today. Pt anemic today with hgb of 7 and tachycardia, 1 U PRBC transfused. Pt has been somewhat delirious, pulling out his IV's and removing R groin dressings. Pt admits some pain in groin sites, but denies any other concerns. Review of Systems Review of Systems: All systems reviewed & are unremarkable except as noted in HPI & below Physical Exam Constitutional: WD/WN, vitals as above cooperative and comfortable; not in distress Respiratory: normal respiratory effort, lungs clear to auscultation Auscultation: + diminished lung sounds Cardiovascular: Rate/Rhythm: regular rate and regular rhythm Vessels: posterior tibial pulses present, dorsalis pedis pulses present and radial pulses present; + abnormal peripheral pulses Extremities: normal capillary refill Gastrointestinal (Abdomen): Inspection/Auscultation: abdomen normal to inspection and normal bowel sounds Percussion/Palpation: abdomen soft; abdomen nontender Musculoskeletal: no cyanosis or clubbing, extremities motor strength 5/5 Skin: no rashes, warm and dry L groi puncture site dressing intact, no bleeding or hematoma. R groin incision dressing in place, appears dry. +local ecchymosis noted. Neurologic: moves all extremities, awake and + confused (mildly); no focal motor deficits Psychiatric: Orientation: alert and oriented x 3 Results & Data Vital Signs (Past 12 Hours) Vital Signs Temp Pulse Pulse Resp BP BP Pulse Ox 07/13/23 14:41 100 H 20 140/79 93 07/13/23 14:00 36.9 C 101 H 22 118/69 94 07/13/23 13:00 36.9 C 96 H 18 127/75 92 07/13/23 12:30 37.0 C 103 H 22 123/82 91 07/13/23 12:15 36.9 C 103 H 24 118/77 93 07/13/23 11:57 36.7 C 103 H 24 126/77 92 07/13/23 11:06 107 H 26 H 103/70 92 07/13/23 10:00 101 H 20 92 07/13/23 09:00 103 H 24 89 L 07/13/23 08:00 107 H 20 81 L 07/13/23 07:54 122/69 07/13/23 07:54 100 H 18 94 07/13/23 07:00 108 H 20 90 07/13/23 07:00 121/82 07/13/23 08:00 07/13/23 08:00 36.9 C 07/13/23 06:00 104 H 20 82 L 07/13/23 06:00 126/72 07/13/23 05:03 130/74 07/13/23 05:03 104 H 17 86 L 07/13/23 05:00 109 H 30 H 93 07/13/23 04:01 107 H 20 96 07/13/23 04:01 93/70 L 07/13/23 04:00 111 H 18 89 L 07/13/23 03:00 92 H 21 07/13/23 03:00 130/70 07/13/23 04:00 36.8 C O2 Del Method O2 Flow Rate 07/13/23 14:41 2 07/13/23 14:00 2 07/13/23 13:00 2 07/13/23 12:30 2 07/13/23 12:15 07/13/23 11:57 2 07/13/23 11:06 Nasal Cannula 2 07/13/23 10:00 07/13/23 09:00 07/13/23 08:00 07/13/23 07:54 07/13/23 07:54 07/13/23 07:00 07/13/23 07:00 07/13/23 08:00 Nasal Cannula 2 07/13/23 08:00 07/13/23 06:00 07/13/23 06:00 07/13/23 05:03 07/13/23 05:03 07/13/23 05:00 07/13/23 04:01 07/13/23 04:01 07/13/23 04:00 07/13/23 03:00 07/13/23 03:00 07/13/23 04:00
[2023-07-14 05:17] LABS: Basophils # (auto) 0.07 K/uL (0.00-0.20); Basophils % (auto) 0.7 %; Eosinophils # (auto) 0.11 K/uL (0.00-0.50); Hematocrit (blood only) 25.5 % (42.0-52.0); Hemoglobin 8.4 g/dl (14.0-18.0); Immature Granulocytes # (auto) 0.09 K/uL (0.01-0.20); Immature Granulocytes % (auto) 0.9 %; Lymphocytes # (auto) 1.45 K/uL (1.20-3.40); Lymphocytes % (auto) 13.8 %; Mean Corpuscular Hemoglobin 30.4 pg (25.0-34.0); Mean Corpuscular Hgb Conc 32.9 g/dL (32.0-36.0); Mean Corpuscular Volume 92.4 fL (80.0-100.0); Mean Platelet Volume 8.9 fL (9.4-12.4); Monocytes # (auto) 1.08 K/uL (0.11-0.59); Monocytes % (auto) 10.3 %; Neutrophils # (auto) 7.71 K/uL (1.40-6.50); Neutrophils % (auto) 73.3 %; Platelet Count 176 K/uL (130-400); RDW Coefficient of Variation 12.9 % (11.5-14.5); RDW Standard Deviation 43.3 fL (36.4-46.3); Red Blood Count 2.76 M/uL (4.70-6.10); White Blood Count 10.51 K/ul (4.8-10.8)
[2023-07-14 05:23] LABS: Calcium 8.5 mg/dl (8.6-10.3); Creatinine Clr Calc Pharmacy 51.8 ml/min; Est GFR (African American) 78.1 ml/min; Est GFR (Non-African American) 67.4 ml/min; Potassium 4.3 mmol/L (3.5-5.1)
[2023-07-14] MEDS: THIAMINE HCL 100 MG TAB PO SCH (09:00)
[2023-07-14] MEDS: PANTOprazole 40 MG TAB PO SCH (09:01)
[2023-07-14] MEDS: MULTIVITAMIN TAB PO SCH (09:01)
[2023-07-14] MEDS: FOLIC ACID 1 MG TAB PO SCH (09:02)
[2023-07-14] MEDS: PHENYTOIN SUSP 125 MG/5 ML PO SCH (09:02)
--- NOTE | 2023-07-14 10:26 | Discharge Summary ---
Date of Service July 14, 2023 Admission HPI Per Admitting Provider Reason for Consultation AAA History of Present Illness I had the pleasure of seeing Kyrie today for evaluation of his abdominal aortic aneurysm. As you know he is a 67-year-old gentleman who was found to have abdominal aortic aneurysm. He had a CAT scan done in 2021 which showed the aneurysm to be 6.1 cm in size. He had an ultrasound done recently which shows 6.[address] angiogram was arranged prior to this visit to better define the aneurysm. 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 He does not have any complaints. Review of Systems Review of systems unobtainable. Physical Exam Vitals & Measurements HR: 77 (Monitored) BP: 142/84 SpO2: 95% Input and Output - Last 24 hours (Last 8 hours) No I/O Data Found: Physical exam he is awake alert he appears to be no in no apparent distress. His blood pressure is 142/84 in the right 146/80 on the left. Lungs are clear heart had a regular rhythm exam is benign. There is a small incision right upper quadrant which I believe is a TUBING MILL SETTER shunt. There is another incision in the left side of his abdomen transversely. His abdomen is soft. He does have a pulsatile mass in the mid epigastrium. Femorals are +2 bilaterally. Heels are +1 bilaterally with normal capillary refill. Diagnostic Results CT angiogram showed a 6.1 cm abdominal aortic aneurysm. It is amenable to an endovascular repair. It also showed a chronic left femoral head hip fracture and displacement. Assessment/Plan AAA (abdominal aortic aneurysm) I discussed the abdominal gives him with his son who is the power of endoscopy technican. He is elected to go ahead and have this repaired. We will obtain an echocardiogram prior to surgery. This is going to be ordered by the facilities physician. Hip fracture, left The physician at the facility Dr. Wise was also made aware of the hip fracture. This will be evaluated by the facility again prior to surgery. If the echo is satisfactory with no significant findings we will go ahead and plan is percutaneous endovascular aortic repair for the beginning of May. Thank you very much for letting us participate in the care of this patient. Sincerely, Tha Vargas MD Problem List/Past Medical History Ongoing AAA (abdominal aortic aneurysm) Hip fracture, left Medications Home folic acid(folic acid 1 mg oral tablet), 1 mg= 1 tab, PO, Daily multivitamin with minerals(Thera M oral tablet), 1 tab, PO, Daily omeprazole(omeprazole 40 mg oral delayed release capsule), 40 mg= 1 cap, PO, Daily phenytoin(phenytoin 100 mg oral capsule, extended release) thiamine(Vitamin B1 100 mg oral tablet) Allergies IVP dye allergy Admission Exam Per Admitting Provider Physical exam he is awake alert he appears to be no in no apparent distress. His blood pressure is 142/84 in the right 146/80 on the left. Lungs are clear heart had a regular rhythm exam is benign. There is a small incision right upper quadrant which I believe is a TUBING MILL SETTER shunt. There is another incision in the left side of his abdomen transversely. His abdomen is soft. He does have a pulsatile mass in the mid epigastrium. Femorals are +2 bilaterally. Heels are +1 bilaterally with normal capillary refill. Principal Diagnosis 1. s/p PEVAR with R groin cutdown/femoral artery repair 2. AAA Discharge Exam Constitutional WD/WN, vitals as above cooperative and comfortable; not in distress Respiratory normal respiratory effort, lungs clear to auscultation Auscultation: + diminished lung sounds Cardiovascular Rate/Rhythm: regular rate and regular rhythm Vessels: posterior tibial pulses present, dorsalis pedis pulses present and radial pulses present; + abnormal peripheral pulses Extremities: normal capillary refill Gastrointestinal (Abdomen) Inspection/Auscultation: abdomen normal to inspection and normal bowel sounds Percussion/Palpation: abdomen soft; abdomen nontender Musculoskeletal no cyanosis or clubbing, extremities motor strength 5/5 Skin no rashes, warm and dry Neurologic moves all extremities, awake and + confused (mildly); no focal motor deficits Psychiatric Orientation: alert and oriented x 3 Discharge Data Allergies Allergy/AdvReac Type Severity Reaction Status Date / Time Iodinated Contrast Media Allergy Unknown Verified 07/12/23 06:07 Consultations 07/12/23 11:53 Consult Operations Project Manager Routine Procedures Performed Operation Date: 07/12/23 08:00 Actual Procedures p Percutaneous Endovascular Repair of Abdominal Aortic Aneurysm, Repair of Right Femoral Artery, Mechanical Enclosure of Left Femoral Artery (Bilateral) - Silverio Vargas MD Ordered Studies 07/12/23 07:21 EV AAA repair aorta only Routine US EV guide vascular access Routine Hospital Course (1) Status post endovascular aneurysm repair (EVAR): Pt doing well overall. Transfused 1 U PRBC. H&H stable. D/C home today. (2) Acute postoperative anemia due to expected blood loss: See above. Total Time Total Time Spent Total Time Spent (In Minutes): 0 Discharge Plan Discharge Items Patient Disposition: Personal Nursing Home Reason For Visit: Abominal Aortic Aneurysm Discharge Diagnosis: 1. s/p PEVAR with R groin cutdown/fe art repair 2. AAA Condition on Discharge: Good Activity: Per Instructions section Non-emergency contact: Primary Care Provider and Surgeon Call non-emergency contact if: your symptoms worsen, your pain is not controlled, your pain is concerning for you, you have a fever, your wound has increased redness and your wound has increased drainage Follow-up/Referrals: Silverio Vargas MD [Physician] - (Follow up with Dr Vargas or Nessa Mccarthy PA-C in 2 weeks. ) Harmony Wise DO [Primary Care Provider] - (Follow up with your PCP in 2 weeks. ) Diet: Heart Healthy Addtl Attending Provider Instructions: SPECIAL CARE INSTRUCTIONS: Medications: * Continue to take your medications as directed. Incision/Puncture Site Care: Remove BL groin dressings in 1 day. No new dressings required unless drainage is noted. * You will have an incision or puncture in each of your groins. Liquid glue will be used to seal your incisions/puncture site. This will lift off as the incisions/puncture sites heal. * If Liquid glue is not used, there will be small dressings covering your in cisions. After you get home, you may remove the dressings and shower - allowing the warm soapy water to run over it. * Be sure to dry the sites well and keep them dry. * DO NOT SOAK IN A TUB/POOL/etc. UNTIL ALL SURGICAL SITES ARE HEALED. DO NOT REMOVE THE GLUE UNTIL THE INCISIONS HEAL. Restrictions: * Limit yourself to load tester activity for the first week. * You may walk and go up and down steps. * Avoid excessive bending or movement at the level of the incisions or punctures. Risks and Possible Complications: * Infection/Drainage/Bleeding - Drainage or bleeding from the incisions/puncture site should be minimal. If you have excessive bleeding or drainage, call our office ([phone]) right away. * Pain/Numbness - You may experience some mild pain or soreness at your incision sites. You may also have some numbness around the incisions or into the insides of your thighs. Bruising is normal and should resolve within 2 weeks. * Changes in Appetite or Bowel Habits - Mostly related to anesthesia and pain medication, some patients have reported decreased appetite and/or problems with constipation. These symptoms usually improve over a few weeks. Remembering to take an [id number] stool softener, as directed, will help you to avoid constipation. Call our office and seek emergent treatment if you develop: * Fever or chills * Have a temperature greater than 101 degrees F * Any redness or purulent drainage from your incisions or punctures * Severe abdominal, chest or back pain SKIN IRRITATION: * You may experience some redness and/or swelling in the area where radiation was administered. If any skin irritation occurs, please contact your family physician. You will be receiving a call from the Vascular Surgery Nurse after you are discharged. FOLLOW UP VISIT: It is important for you to keep your follow up appointments with your medical provider. Keep any scheduled doctor appointments. Pending Studies at Discharge: No Stand-Alone Forms: [facility] [employer], Smoking Cessation Skilled Items Patient informed of condition?: Yes DNR: No Discharge Level of Care: Skilled Communicable Disease: No Discharge Prognosis: Stable Lines: None Urinary Catheter: No Medications and DC Order Prescriptions: Continued thiamine HCl (vitamin B1) 100 mg Tablet 200 mg PO DAILY omeprazole 40 mg Capsule,Delayed Release(Dr/Ec) 40 mg PO DAILY magnesium hydroxide [Milk of Magnesia] 400 mg/5 mL Suspension 15 ml PO DAILY PRN (Reason: constipation, no BM for 3 days) hydrocortisone 1 % Cream 1 applic TOPICAL UD PRN (Reason: Rash) bisacodyl 10 mg Suppository 10 mg [place] DAILY PRN (Reason: for constipation, if no results from [facility]OM) Rx Instructions: Q72H, if no results from [facility] folic acid 1 mg Tablet 1 mg PO DAILY acetaminophen 325 mg Capsule 325 mg PO QID PRN (Reason: fever/pain) phenytoin 100 mg/4 mL Suspension 150 mg PO BID Thera M Plus (ferrous fumarat) 9 mg iron-400 mcg Tablet 1 tab PO DAILY Discharge Orders: Discharge Order (Routine); Ordered 07/14/23 Ordered By: Nessa Mccarthy Admission Data Admit Date/Time: 07/12/23 07:46 Attending Provider: Silverio Vargas Admit Provider: Silverio Vargas Primary Care Provider: Harmony Wise Other Providers: Alejandro Copeland ; Buster Goodwin ; Darrin Londono ; Cooper Trevino ; Ricardo Solo ; Luiz Peacock ; Rodriguez Flores ; Greg Craig ; Tamie Mejia ; Yue Dubon ; Nader Navas ; Petar Mclain
== END 2023-07-14 14:04 | DRG 269 ==
LOC: ASU 05:33 → 1E 07:46